=== PATIENT | male | born 1930 | race American Indian/Alaskan Native ===

== ENCOUNTER 2018-04-29 10:40 | Emergency (ER) | payer OTHER ==
[2018-04-29] MEDS ORDERED: Sodium Chloride 0.9% 500 ML IV STA (11:41)
[2018-04-29 12:35] LABS: BASO # 0.03 K/mm3 (0.0-2.0); BASO % 0.4 % (0.0-3.0); EOS # 0.2 (0.0-0.7); EOS % 2.5 % (1.5-5.0); GRAN # 3.96 (1.4-6.5); HEMOGLOBIN 14.5 g/dL (14.0-18.0); LYMPH # 2.9 (1.2-3.4); LYMPH % 37.4 % (22.0-35.0); MEAN CELL VOLUME 83.1 fl (80.0-105.0); MEAN CORPUSCULAR HEMOGLOBIN 28.5 pg (25.0-35.0); MEAN CORPUSCULAR HGB CONC 34.3 g/dl (31.0-37.0); MEAN PLATELET VOLUME 10.7 fl (7.0-11.0); MONO # 0.6 (0.1-0.6); MONO % 7.7 % (1.0-6.0); RBC 5.09 10^6/uL (3.5-6.1); RED CELL DISTRIBUTION WIDTH 14.7 % (11.5-14.5); WHITE BLOOD COUNT 7.6 10^3/ul (4.5-11.0)
[2018-04-29 12:36] LABS: VENOUS BLOOD GAS BASE EXCESS -0.4 mmol/L (0.0-2.0); VENOUS BLOOD GAS PO2 72 mm/Hg (30-55); VENOUS BLOOD PH 7.38 (7.32-7.43)
[2018-04-29 12:37] LABS: INR 0.96
[2018-04-29 12:39] LABS: PARTIAL THROMBOPLASTIN TIME 33.1 Seconds (25.1-36.5)
[2018-04-29] MEDS ORDERED: Insulin Regular 1 UNITS/0.01 ML ML IVP STA (12:41)
[2018-04-29 12:43] LABS: ALB/GLOB RATIO 1.3 (1.1-1.8); ALBUMIN 4.5 g/dL (3.0-4.8); ALT/SGPT 22 U/L (7-56); AST/SGOT 20 U/L (17-59); BLOOD UREA NITROGEN 13 mg/dL (7-21); CALCIUM 9.2 mg/dL (8.4-10.5); GFR AFRICAN-AMERICAN > 60; GFR NON-AFRICAN AMERICAN > 60
[2018-04-29 12:50] LABS: TROPONIN I < 0.01 ng/mL
--- NOTE | 2018-04-29 13:03 | CT ---
Date of service: 04/29/2018 PROCEDURE: CT HEAD WITHOUT CONTRAST. HISTORY: headache COMPARISON: None available. TECHNIQUE: Axial computed tomography images were obtained through the head/brain without intravenous contrast. Radiation dose: Total exam DLP = 832 mGy-cm. This CT exam was performed using one or more of the following dose reduction techniques: Automated exposure control, adjustment of the mA and/or kV according to patient size, and/or use of iterative reconstruction technique. FINDINGS: HEMORRHAGE: No intracranial hemorrhage. BRAIN: No mass effect or edema. Chronic microvascular changes are seen in the periventricular white matter VENTRICLES: Unremarkable. No hydrocephalus. CALVARIUM: Unremarkable. PARANASAL SINUSES: Unremarkable as visualized. No significant inflammatory changes. MASTOID AIR CELLS: Unremarkable as visualized. No inflammatory changes. OTHER FINDINGS: None. IMPRESSION: No acute intracranial findings
[2018-04-29 13:07] LABS: B-TYPE NATRIURETIC PEPTIDE 47.8 pg/mL (0-450)
--- NOTE | 2018-04-29 13:23 | RAD ---
Date of service: 04/29/2018 PROCEDURE: Radiographs of the Lumbar Spine. HISTORY: back pain COMPARISON: No prior. FINDINGS: BONES: Normal alignment. No listhesis. No fracture. DISC SPACES: Unremarkable. OTHER FINDINGS: None. IMPRESSION: Unremarkable radiographs of the lumbar spine.
[2018-04-29 13:55] VITALS: PULSE 78; RESP 18
--- NOTE | 2018-04-29 14:37 | ED PDOC ---
Arrival/HPI - General Chief Complaint: Headache Time Seen by Provider: 04/29/18 11:21 Historian: Patient - History of Present Illness Narrative History of Present Illness (Text): 04/29/18 14:37 87yo male with pmhx of hypertension and diabetes who present with complaint of headache x 1week, back pain and lower extremity swelling. Notes that the swelling has been ongoing for months. Stats he is currently visiting from [facility]. States he had similar headache 3weeks ago, but it stopped after few days , but this time is prolonged. Denies focal weakness, chest pain, SOB, diaphoresis, calf pain, nausea, vomiting, fever, chills, nuchal ridigty, trauma , dizziness, any other complaint. Past Medical History - Provider Review Nursing Documentation Reviewed: Yes - Travel History If Yes, travel location?: [facility] - Cardiac Hx Cardiac Disorders: Yes Hx Hypertension: Yes - Pulmonary Hx Respiratory Disorders: No - Neurological Hx Neurological Disorder: No - HEENT Hx HEENT Disorder: No - Renal Hx Renal Disorder: No - Endocrine/Metabolic Hx Endocrine Disorders: Yes Hx Diabetes Mellitus Type 2: Yes - Hematological/Oncological Hx Blood Disorders: No - Integumentary Hx Dermatological Disorder: No - Musculoskeletal/Rheumatological Hx Musculoskeletal Disorders: No - Gastrointestinal Hx Gastrointestinal Disorders: No - Genitourinary/Gynecological Hx Genitourinary Disorders: Yes Other/Comment: URINE RETENTION - Psychiatric Hx Psychophysiologic Disorder: No Hx Substance Use: No - Surgical History Other/Comment: R/T URINE RETENTION Family/Social History - Physician Review Nursing Documentation Reviewed: Yes Family/Social History: Unknown Family HX Smoking Status: Current Some Days Smoker Hx Alcohol Use: No Hx Substance Use: No Allergies/Home Meds Allergies/Adverse Reactions: Allergies No Known Allergies Allergy (Verified 04/29/18 11:07) Home Medications: Home Meds Medication Instructions Recorded Confirmed Glibenclamide 5 mg PO DAILY 04/29/18 MetFORMIN [glucoPHAGE] 500 mg PO BID 04/29/18 04/29/18 Nifedipine [Procardia] 20 mg PO DAILY 04/29/18 04/29/18 Review of Systems - Physician Review All systems were reviewed & negative as marked: Yes - Review of Systems Constitutional: Normal Eyes: Normal ENT: Normal Respiratory: Normal Cardiovascular: Chest Pain Gastrointestinal: Normal Genitourinary Male: Normal Musculoskeletal: Back Pain Skin: Normal Neurological: Headache. absent: Dizziness, Focal Weakness, Speech Changes Endocrine: Normal Hemo/Lymphatic: Normal Psychiatric: Normal Physical Exam Vital Signs Reviewed: Yes Vital Signs Temp Pulse Resp BP Pulse Ox 04/29/18 12:41 78 18 136/96 H 98 04/29/18 11:10 98.6 F 88 16 166/75 H 95 Temperature: Afebrile Blood Pressure: Normal Pulse: Regular Respiratory Rate: Normal Appearance: Positive for: Well-Appearing, Non-Toxic, Comfortable Pain Distress: None Mental Status: Positive for: Alert and Oriented X 3 Finger Stick Blood Glucose: 129 - Systems Exam Head: Present: Atraumatic, Normocephalic Pupils: Present: PERRL Extroacular Muscles: Present: EOMI Conjunctiva: Present: Normal Mouth: Present: Moist Mucous Membranes Neck: Present: Normal Range of Motion Respiratory/Chest: Present: Clear to Auscultation, Good Air Exchange. No: Respiratory Distress, Accessory Muscle Use Cardiovascular: Present: Regular Rate and Rhythm, Normal S1, S2. No: Murmurs Abdomen: No: Tenderness, Distention, Peritoneal Signs Back: No: Midline Tenderness, Paraspinal Tenderness, Pain with Leg Raise Upper Extremity: Present: Normal Inspection. No: Cyanosis, Edema Lower Extremity: Present: Edema (1+ pedal edema b/l) Neurological: Present: GCS=15, CN II-XII Intact, Speech Normal, Motor Func Grossly Intact, Normal Sensory Function, Normal Cerebellar Funct, Norm Deep Tendon Reflexes, Gait Normal, Memory Normal, Normal 2Pt Descrimination, Other ( No focal neurological deficit) Skin: Present: Warm, Dry, Normal Color. No: Rashes Psychiatric: Present: Alert, Oriented x 3, Normal Insight, Normal Concentration Medical Decision Making ED Course and Treatment: 04/29/18 15:02 87yo male who present with stated history. He was neurologically intact and hemodynamically stable in ED. Lab was ordered and reviewed. It was unremarkable with exception of hyperglycemia. He was hydrated and insulin was given on re evaluation his FS improved in ED Head CT - No acute finding LS xray - No acute finding PEr US tech b/l Doppler was negative for DVT PT was ambulatory in ED. His pain was controlled in ED. He was advised to use compression stockings and keep his leg elevated. Ibuprofen 600mg rx was given and he was referred to the clinic. - Lab Interpretations Lab Results: 04/29/18 11:55 04/29/18 11:55 Lab Results 04/29/18 14:12: POC Glucose (mg/dL) 129 H 04/29/18 11:55: pO2 72 H, VBG pH 7.38, VBG pCO2 42.0, VBG HCO3 24.8, VBG Total CO2 26.1, VBG O2 Sat (Calc) 96.3 H, VBG Base Excess -0.4 L, VBG Potassium 4.0, Sodium 138.0, Chloride 99.0, Glucose 342 H, Lactate 3.3 H, FiO2 21.0, Venous Blood Potassium 4.0 04/29/18 11:55: Sodium 138, Chloride 100, Potassium 4.0, Carbon Dioxide 22, Anion Gap 20, BUN 13, Creatinine 0.8, Est GFR ( Amer) > 60, Est GFR (Non- Af Amer) > 60, Random Glucose 320 H*, Calcium 9.2, Total Bilirubin 0.6, AST 20, ALT 22, Alkaline Phosphatase 83, Lactate Dehydrogenase 345, Total Creatine Kinase 33 L, Troponin I < 0.01, NT-Pro-B Natriuret Pep 47.8, Total Protein 8.1, Albumin 4.5, Globulin 3.5, Albumin/Globulin Ratio 1.3 04/29/18 11:55: PT 11.0, INR 0.96, APTT 33.1 04/29/18 11:55: WBC 7.6, RBC 5.09, Hgb 14.5, Hct 42.3, MCV 83.1, MCH 28.5, MCHC 34.3, RDW 14.7 H, Plt Count 221, MPV 10.7, Gran % 52.0, Lymph % (Auto) 37.4 H, [place] % (Auto) 7.7 H, Eos % (Auto) 2.5, Baso % (Auto) 0.4, Gran # 3.96, Lymph # ( Auto) 2.9, [place] # (Auto) 0.6, Eos # (Auto) 0.2, Baso # (Auto) 0.03 04/29/18 11:20: POC Glucose (mg/dL) 312 H - RAD Interpretation Radiology Orders: 04/29/18 11:37 HEAD W/O CONTRAST [CT] Stat 04/29/18 11:38 LS SPINE WITH OBL > 18 YRS OLD [RAD] Stat DUPLEX LOWER EXTRM VEIN BILAT [US] Stat - Medication Orders Current Medication Orders: Discontinued Medications Acetaminophen (Tylenol 325mg Tab) 650 mg PO STAT STA Stop: 04/29/18 11:39 Last Admin: 04/29/18 11:55 Dose: 650 mg MAR Pain/Vitals Document 04/29/18 11:55 EWO (Rec: 04/29/18 11:56 MEENA BRINDA) Pain Reassessment Is This A Pain ReAssessment? No Sodium Chloride (Sodium Chloride 0.9%) 500 mls @ 999 mls/hr IV .Q31M STA Stop: 04/29/18 12:11 Last Admin: 04/29/18 11:56 Dose: 999 mls/hr eMAR Start Stop Document 04/29/18 11:56 EWO (Rec: 04/29/18 11:57 MEENA BRINDA) Intravenous Solution Start Date 04/29/18 Start Time 11:56 End Date 04/29/18 End time 12:26 Total Infusion Time 30 Insulin Human Regular (Humulin R) 5 units IVP ONCE STA Stop: 04/29/18 12:42 Last Admin: 04/29/18 13:30 Dose: 5 unit [facility] Blood Glucose Document 04/29/18 13:30 EWO (Rec: 04/29/18 13:30 [facility] BRINDA) Blood Glucose Finger Stick Blood Glucose (70-120) 320 IVP Administration Document 04/29/18 13:30 EWO (Rec: 04/29/18 13:30 [facility] BRINDA) Charges for Administration # of IVP Administrations 1 Ketorolac Tromethamine (Toradol) 15 mg IVP STAT STA Stop: 04/29/18 14:52 Last Admin: 04/29/18 14:59 Dose: 15 mg MAR Pain Assessment Document 04/29/18 14:59 EWO (Rec: 04/29/18 14:59 [facility] BRINDA) Pain Reassessment Is this a pain reassessment? No Sleep Is patient sleeping during reassessment? No Presence of Pain Presence of Pain Yes Pain Scale Used Pain Scale Used Numeric IVP Administration Document 04/29/18 14:59 EWChon (Rec: 04/29/18 14:59 [facility] [id number]) Charges for Administration # of IVP Administrations 1 Metoclopramide HCl (Reglan) 10 mg IVP STAT STA Stop: 04/29/18 13:17 Last Admin: 04/29/18 13:30 Dose: 10 mg IVP Administration Document 04/29/18 13:30 KENZIE (Rec: 04/29/18 13:30 [facility] [id number]) Charges for Administration # of IVP Administrations 1 Disposition/Present on Arrival - Present on Arrival Any Indicators Present on Arrival: No History of DVT/PE: No History of Uncontrolled Diabetes: Yes Urinary Catheter: No History of Decub. Ulcer: No History Surgical Site Infection Following: None - Disposition Have Diagnosis and Disposition been Completed?: Yes Diagnosis: Edema, Hyperglycemia, Headache Disposition: HOME/ ROUTINE Disposition Time: 14:45 Patient Plan: Discharge Patient Problems: Current Active Problems Problem Status Onset Edema Acute Headache Acute Hyperglycemia Acute Condition: STABLE Discharge Instructions (ExitCare): Headache, Adult, Hyperglycemia, Adult (DC), Diabetes and Diet Additional Instructions: Follow up with your Doctor/clinic Use compression stocking and elevate foot Return to ED for any new or worsening symptoms Prescriptions: Ibuprofen [Motrin Tab] 600 mg PO Q6 #20 tab Referrals: Martha Dailey MD [Staff Provider] - Follow up with primary Forms: [employer] (Frisian)
[2018-04-29 15:06] VITALS: BP 135/79; TEMP 98.2; O2SAT 99
--- NOTE | 2018-05-01 07:01 | CARD ---
APPROVED REPORT Date of service: 04/29/2018 EKG Measurement Heart [id number] <Conclusion> Normal sinus rhythm Minimal voltage criteria for LVH, may be normal variant Early repolarization Borderline ECG
--- NOTE | 2018-05-01 10:02 | US ---
HISTORY: Leg pain and swelling. Evaluate for DVT PHYSICIAN(S): Shubham Ho MD. TECHNIQUE: Duplex sonography and color-flow Doppler with graded compression were used to evaluate the deep venous systems of both lower extremities. The exam is limited by edema. FINDINGS: The visualized deep venous systems of both lower extremities are sonographically normal and compressible. Normal wave forms and augmentation are seen. There is no sonographic evidence for deep venous thrombosis in the visualized segments of both lower extremities. IMPRESSION: No sonographic evidence for deep venous thrombosis in the visualized segments of both lower extremities.
== END 2018-04-29 15:05 | disposition home or self-care (01) ==
LOC: ED 10:40
DX: R51 Headache (principal); E11.65 Type 2 diabetes mellitus with hyperglycemia; R60.9 Edema, unspecified; I10 Essential (primary) hypertension
CPT/HCPCS: 70450; 72110; 80053; 82550; 82803; 82948; 83615; 83880; 84484; 85025; 85610; 85730; 87040; 93005; 93970; 96374; 96375; 99285; J1885; J2765; J7040